=== PATIENT | male | born 1995 | race Caucasian/White ===

== ENCOUNTER 2017-04-28 18:21 | Emergency (ER) | payer OTHER ==
[~2017-04-28] VITALS: Ht 180.3 cm; Wt 60.0 kg
[2017-04-28 18:23] VITALS: BP 136/81; PULSE 92; RESP 14; TEMP 97.7; O2SAT 99
[2017-04-28] MEDS ORDERED: SODIUM CHLOR 0.9% 1000 ML INJ 1,000 ML IV SCH (18:38)
--- NOTE | 2017-04-28 18:42 | PD ---
HPI Chief Complaint: Allergic/Adverse Reaction Time Seen by Provider: 18:35 Travel History International Travel<30 days: No Contact w/Intl Traveler<30days: No Traveled to known affect area: No History of Present Illness HPI 21-year-old male with reported history of anxiety, allergies to soy/tree nuts/ peanuts/legumes, here for evaluation of possible allergic reaction. The patient reports that shortly after eating a sandwich at around 2:00 PM he developed hives, chest tightness, and abdominal discomfort. He took a dose of Benadryl at that time and took another dose about an hour and half prior to coming to the emergency department. He reports he had mild lip swelling. States it is slightly difficult for him to breathe because of some chest tightness. He has had similar reactions in the past, however he reports that they are usually a little bit more severe. [facility] Social History Alcohol Use: No Tobacco Use: No Substance Use: No Allergies-Medications (Allergen,Severity, Reaction): Coded Allergies: legumes (Verified Allergy, Severe, LIPS SWELLING, 04/28/17) soy (Verified Allergy, Intermediate, RASH AND LIP SWELLING, 04/28/17) tree nut (Verified Allergy, Unknown, 04/28/17) Reported Meds & Prescriptions Reported Meds & Active Scripts Active No Active Prescriptions or Reported Medications Physical Exam Narrative GENERAL: Well-developed, well-nourished, comfortable, no apparent distress. SKIN: Focused skin assessment warm/dry. Few urticarial type lesions on his chest and back. HEAD: Atraumatic. Normocephalic. EYES: Pupils equal and round. No scleral icterus. No injection or drainage. ENT: Mucous membranes pink and moist. No tongue or lip swelling. No drooling or stridor. No intraoral lesions. Normal phonation. NECK: Trachea midline. No JVD. CARDIOVASCULAR: Regular rate and rhythm. RESPIRATORY: No accessory muscle use. Clear to auscultation. Breath sounds equal bilaterally. GASTROINTESTINAL: Abdomen soft, non-tender, nondistended. MUSCULOSKELETAL: No obvious deformities. No clubbing. No cyanosis. No edema. NEUROLOGICAL: Awake and alert. No obvious cranial nerve deficits. Motor grossly within normal limits. Normal speech. PSYCHIATRIC: Appropriate mood and affect; insight and judgment normal. Data Data Last Documented VS Vital Signs Date Time Temp Pulse Resp B/P (MAP) Pulse Ox O2 Delivery O2 Flow Rate FiO2 04/28/17 22:50 04/28/17 21:00 83 16 100 Room Air 04/28/17 18:23 97.7 Orders Orders Complete Blood Count With Diff (04/28/17 18:38) Comprehensive Metabolic Panel (04/28/17 18:38) Ecg Monitoring (04/28/17 18:38) Iv Access Insert/Monitor (04/28/17 18:38) Oximetry (04/28/17 18:38) Methylprednisolone So Succ Inj (Solumedr (04/28/17 18:45) Famotidine Inj (Pepcid Inj) (04/28/17 18:45) Sodium Chlor 0.9% 1000 Ml Inj (Ns 1000 M (04/28/17 18:38) Sodium Chloride 0.9% Flush (Ns Flush) (04/28/17 18:45) Chest, Single Ap (04/28/17 ) Electrocardiogram (04/28/17 ) Ckmb (Isoenzyme) Profile (04/28/17 19:18) Troponin I (04/28/17 19:18) CKMB (04/28/17 18:47) CKMB% (04/28/17 18:47) Ct Abd/Pel W Iv Contrast(Rout) (04/28/17 ) Oral Contrast - Adult (04/28/17 20:06) Iohexol 350 Inj (Omnipaque 350 Inj) (04/28/17 22:31) Ed Discharge Order (04/28/17 22:52) Labs Laboratory Tests Test 04/28/17 18:47 White Blood Count 10.2 TH/MM3 Red Blood Count 4.85 MIL/MM3 Hemoglobin 14.8 GM/DL Hematocrit 41.6 % Mean Corpuscular Volume 85.8 FL Mean Corpuscular Hemoglobin 30.4 PG Mean Corpuscular Hemoglobin Concent 35.5 % Red Cell Distribution Width 12.9 % Platelet Count 198 TH/MM3 Mean Platelet Volume 8.2 FL Neutrophils (%) (Auto) 75.1 % Lymphocytes (%) (Auto) 17.6 % Monocytes (%) (Auto) 5.1 % Eosinophils (%) (Auto) 2.0 % Basophils (%) (Auto) 0.2 % Neutrophils # (Auto) 7.6 TH/MM3 Lymphocytes # (Auto) 1.8 TH/MM3 Monocytes # (Auto) 0.5 TH/MM3 Eosinophils # (Auto) 0.2 TH/MM3 Basophils # (Auto) 0.0 TH/MM3 CBC Comment DIFF FINAL Differential Comment Blood Urea Nitrogen 15 MG/DL Creatinine 1.19 MG/DL Random Glucose 94 MG/DL Total Protein 8.2 GM/DL Albumin 4.5 GM/DL Calcium Level 9.0 MG/DL Alkaline Phosphatase 131 U/L Aspartate Amino Transf (AST/SGOT) 19 U/L Alanine Aminotransferase (ALT/SGPT) 29 U/L Total Bilirubin 0.4 MG/DL Sodium Level 139 MEQ/L Potassium Level 3.7 MEQ/L Chloride Level 103 MEQ/L Carbon Dioxide Level 30.1 MEQ/L Anion Gap 6 MEQ/L Estimat Glomerular Filtration Rate 79 ML/MIN Total Creatine Kinase 135 U/L Creatine Kinase MB 1.0 NG/ML Troponin I LESS THAN 0.02 NG/ML MDM Medical Decision Making Medical Screen Exam Complete: Yes Emergency Medical Condition: Yes Interpretation(s) EKG: Sinus, rate 78, normal axis, normal intervals, no acute ischemic abnormality. Reading on top says type III Brugada, I do not agree with this. The reading also reports ST elevation with a pattern consistent of injury, pericarditis, or early repolarization. This appears to be early repolarization. Differential Diagnosis Allergic reaction, anaphylaxis, Narrative Course Vital signs reviewed and are within normal limits. CBC is unremarkable. CMP is unremarkable. Cardiac enzymes are negative. Chest x-ray: No evidence of acute cardiopulmonary disease. 8:00 PM: The patient was reassessed after receiving IV Solu-Medrol and Pepcid and reports that his rash has resolved. He no longer has chest tightness. He is complaining of continued periumbilical abdominal pain. He is mildly tender in this area. CT abdomen pelvis will be ordered. CT abdomen pelvis: CONCLUSION: Small nonspecific free fluid. Otherwise negative. No focal inflammatory changes are demonstrated. Patient was made aware of all findings. On reassessment at 10:50 PM he is resting comfortably in symptoms have resolved. Patient does have 3 epi pens at home and has been with him here in the emergency department. At this point he is stable for discharge home with outpatient follow-up with a primary care physician this week. He was informed on when to return to the emergency department. He verbalizes understanding and agreement with plan. Diagnosis Primary Impression: Allergic reaction Qualified Codes: T78.40XA - Allergy, unspecified, initial encounter Additional Impression: Abdominal pain Qualified Codes: R10.33 - Periumbilical pain Referrals: Primary Care Physician 3 days Additional Instructions: Follow-up with a primary care physician this week. Return to the emergency department for worsening symptoms or any other concerns. Scripts Prednisone (Prednisone) 50 Mg Tab 50 MG PO DAILY for 3 Days, #3 TAB 0 Refills Prov: Aric Johnson MD 04/28/17 Disposition: 01 DISCHARGE HOME Condition: Stable Aric Johnson MD Apr 28, 2017 18:41
[2017-04-28] MEDS ORDERED: SODIUM CHLORIDE 0.9% FLUSH 10 ML FLUSH IV FLUSH PRN (18:45)
[2017-04-28] MEDS ORDERED: FAMOTIDINE 20 MG/2 ML VIAL IV PUSH ONE (18:45)
[2017-04-28] MEDS ORDERED: methylPREDNISolone SOD SUCC 125 MG/2 ML VIAL IV PUSH ONE (18:45)
[2017-04-28 18:48] VITALS: O2SAT 100
[2017-04-28 18:56] LABS: AUTOMATED NEUTROPHIL # 7.6 TH/MM3 (1.8-7.7); BASOPHIL % 0.2 % (0.0-2.0); EOSINOPHIL # 0.2 TH/MM3 (0-0.4); HEMATOCRIT 41.6 % (39.0-51.0); HEMOGLOBIN 14.8 GM/DL (13.0-17.0); LYMPH % 17.6 % (9.0-44.0); LYMPHOCYTE # 1.8 TH/MM3 (1.0-4.8); MEAN CELL VOLUME 85.8 FL (80.0-100.0); MEAN CORPUSCULAR HEMOGLOBIN 30.4 PG (27.0-34.0); MEAN CORPUSCULAR HGB CONC 35.5 % (32.0-36.0); MEAN PLATELET VOLUME 8.2 FL (7.0-11.0); MONO % 5.1 % (0.0-8.0); MONOCYTE # 0.5 TH/MM3 (0-0.9); NEUT % 75.1 % (16.0-70.0); PLATELET COUNT 198 TH/MM3 (150-450); RED BLOOD COUNT 4.85 MIL/MM3 (4.50-5.90); RED CELL DISTRIBUTION WIDTH 12.9 % (11.6-17.2); WHITE BLOOD COUNT 10.2 TH/MM3 (4.0-11.0)
--- NOTE | 2017-04-28 19:08 | RADRPT ---
EXAM DATE/TIME: 04/28/2017 18:45 [facility] COMPARISON: No previous studies available for comparison. INDICATIONS : Shortness of breath and chest tightness. Possible allergic reaction. MEDICAL HISTORY : Asthma. SURGICAL HISTORY : None. ENCOUNTER: Initial ACUITY: 1 day PAIN SCORE: 0/10 LOCATION: Bilateral chest FINDINGS: A single view of the chest demonstrates the lungs to be symmetrically aerated without evidence of mas s, infiltrate or effusion. The cardiomediastinal contours are unremarkable. Osseous structures are intact. CONCLUSION: No evidence of acute cardiopulmonary disease. Chuy Holder MD on April 28, 2017 at 19:05 Board Certified Radiologist. This report was verified electronically.
[2017-04-28 19:13] VITALS: BP 120/63; PULSE 75; RESP 16; O2SAT 99
[2017-04-28 19:15] LABS: ALBUMIN 4.5 GM/DL (3.4-5.0); AST (GOT) 19 U/L (15-39); BICARBONATE 30.1 MEQ/L (21.0-32.0); BLOOD UREA NITROGEN 15 MG/DL (7-18); CHLORIDE 103 MEQ/L (98-107); CREATININE 1.19 MG/DL (0.60-1.30); GLOMERULAR FILTRATION RATE 79 ML/MIN (>89); GLUCOSE,RANDOM 94 MG/DL (74-106); SODIUM (NA) 139 MEQ/L (136-145)
[2017-04-28 19:16] LABS: ALT (GPT) 29 U/L (9-52)
[2017-04-28 19:19] LABS: ALKALINE PHOSPHATASE 131 U/L (45-117); TOTAL BILIRUBIN ADULT 0.4 MG/DL (0.2-1.0); TOTAL PROTEIN 8.2 GM/DL (6.4-8.2)
[2017-04-28 19:38] LABS: TROPONIN I LESS THAN 0.02 NG/ML (0.02-0.05)
[2017-04-28 20:43] VITALS: BP 114/74; PULSE 85; RESP 15; O2SAT 100
[2017-04-28 21:00] VITALS: BP 125/79; PULSE 83; RESP 16; O2SAT 100
--- NOTE | 2017-04-28 22:11 | RADRPT ---
EXAM DATE/TIME: 04/28/2017 21:43 [facility] COMPARISON: No previous studies available for comparison. INDICATIONS : Abdominal pain, possible allergic reaction to food ingested. IV CONTRAST: 100 cc Omnipaque 350 (iohexol) IV ORAL CONTRAST: Prescribed oral contrast ingested. RADIATION DOSE: 5.54 CTDIvol (mGy) MEDICAL HISTORY : None SURGICAL HISTORY : None. ENCOUNTER: Initial ACUITY: 1 day PAIN SCALE: 2/10 LOCATION: Bilateral abdomen TECHNIQUE: Volumetric scanning of the abdomen and pelvis was performed. Using automated exposure control and ad justment of the mA and/or kV according to patient size, radiation dose was kept as low as reasonably achievable to obtain optimal diagnostic quality images. DICOM format image data is available electro nically for review and comparison. FINDINGS: Solid organs are normal. No obstruction or acute inflammatory changes seen of the gastrointestinal tr act. There is small free fluid in the pelvic cavity and both pericolic gutters. Nothing organized or drainable. The appendix is normal. Very distended urinary bladder at the time of imaging. CT appearance of the gallbladder within normal limits. Lung bases are clear. Visualized osseous structures are normal. CONCLUSION: Small nonspecific free fluid. Otherwise negative. No focal inflammatory changes are demonstrated. Chuy Holder MD on April 28, 2017 at 22:06 Board Certified Radiologist. This report was verified electronically.
[2017-04-28] MEDS ORDERED: IOHEXOL 350 MG/ML 10 ML VIAL (for RAD DIAG) IVCONTRAST ONE (22:31)
[2017-04-28] MEDS ORDERED: PRED50 PO (22:52)
--- NOTE | 2017-04-29 17:20 | EKG ---
Date Performed: 04/28/2017 Time Performed: 19:15:07 PTAGE: 21 years EKG: Sinus rhythm WITH SINUS ARRHYTHMIA POSSIBLE RIGHT VENTRICULAR CONDUCTION DELAY ST ELEVATION CONSISTENT WITH INJUR Y, PERICARDITIS, OR EARLY REPOLARIZATION TYPE 3 BRUGADA PATTERN (NON-DIAGNOSTIC) ABNORMAL ECG NO PREVIOUS TRACING DOCTOR: Jerry Hart Interpretating Date/Time 04/29/2017 17:18:31
== END 2017-04-28 23:05 | disposition home or self-care (01) ==
LOC: NEPD 18:21
DX: T78.40XA Allergy, unspecified, initial encounter (principal); R10.33 Periumbilical pain; R07.89 Other chest pain; L50.0 Allergic urticaria; R22.0 Localized swelling, mass and lump, head; I49.8 Other specified cardiac arrhythmias; R94.31 Abnormal electrocardiogram [ECG] [EKG]; F41.9 Anxiety disorder, unspecified
CPT/HCPCS: 71045; 74177; 80053; 82550; 82552; 84484; 85025; 93005; 96361; 96374; 96375; 99285; J2930; J7030; Q9967